=== PATIENT | male | born 1985 | race Hispanic/Latino ===

== ENCOUNTER 2020-03-21 18:10 | Emergency (ER) | payer SELFPAY ==
[2020-03-21] MEDS ORDERED: HYDROcodone/Acetaminophen 5/325 mg Tablet ONE (18:59)
[2020-03-21] MEDS ORDERED: Bacitracin 1 PK ONE (19:00)
== END 2020-03-21 20:13 | disposition home or self-care (01) ==
LOC: ERS 18:10
DX: S80.812A Abrasion, left lower leg, initial encounter (principal); S20.314A Abrasion of middle front wall of thorax, initial encounter; V89.2XXA Person injured in unspecified motor-vehicle accident, traffic, initial encounter
CPT/HCPCS: 71046